=== PATIENT | female | born 1945 | race Caucasian/White ===

== ENCOUNTER 2017-09-17 10:42 | Outpatient (CLI) | payer MEDICARE, OTHER ==
--- NOTE | 2017-09-20 13:45 | Mammography Report ---
DIGITAL SCREENING MAMMOGRAM: 09/17/2017 CLINICAL INDICATION: A 72-year-old with family history of breast cancer, history of benign biopsies, for screening. COMPARISON: 12/2014, 06/2012. TECHNIQUE: Routine CC and MLO projections were obtained of the breasts. FINDINGS: Parenchymal tissue within the breasts is predominantly fatty replaced. There are no domina nt masses, suspicious microcalcifications, or secondary signs of malignancy. In comparison to the pre vious studies, there are no significant changes. IMPRESSION: NO MAMMOGRAPHIC EVIDENCE OF MALIGNANCY. NO SIGNIFICANT INTERVAL CHANGES. RECOMMENDATION: Screening mammography is recommended annually. BIRADS category 1 - negative. STANDARD QUALIFYING STATEMENTS 1. This examination was reviewed with the aid of Computed-Aided Detection (CAD). 2. A negative or benign imaging report should not delay biopsy if clinically suspicious findings are present. Consider surgical consultation if warranted. More than 5% of cancers are not identified by i maging. 3. Dense breasts may obscure an underlying neoplasm. JOB #: [id number] EXT JOB #:[id number]
== END 2017-09-17 10:43 | disposition home or self-care (01) ==
LOC: DI.S 10:42
PROVIDERS: ATTEND Family Medicine
DX: Z12.31 Encounter for screening mammogram for malignant neoplasm of breast (principal); Z80.3 Family history of malignant neoplasm of breast
CPT/HCPCS: 77067

== ENCOUNTER 2020-10-19 12:50 | Outpatient (CLI) | payer MEDICARE, OTHER ==
--- NOTE | 2020-10-19 20:11 | Ultrasound Report ---
PROCEDURE: Chest INDICATIONS: MASS OF ABD WALL, CHEST/TRUNK TECHNIQUE: Real-time scanning was performed, of the left abdominal wall. COMPARISON: None. FINDINGS: At the site of palpable abnormality in the left lateral abdominal wall are 2 subcutaneous adjacent ma sses. 1) Circumscribed isoechoic mass measuring 5.9 x 4.9 x 1.8 cm with a small calcification. There is mil d internal vascularity. 2) Circumscribed slightly hypoechoic mass measuring 2.9 x 2.1 x 0.7 cm. Internal vascularity at the p eriphery is seen. IMPRESSION: At the palpable abnormality at the left lateral abdominal wall are 2 subcutaneous masses measuring 5. 9 and 2.9 cm. One of the masses has a calcification within it. This has a somewhat atypical appearance for the more common subcutaneous lipoma which are generally s oft and not firm and without calcification. Benign and malignant masses are in the differential diagn osis. MRI with IV contrast and fat saturated sequences could be helpful for further characterization. Ultra sound-guided biopsy could be performed for tissue diagnosis. Reviewed by: Ronnie Perla MD on 10/19/2020 7:09 PM [facility] Approved by: Ronnie Perla MD on 10/19/2020 7:09 PM [facility] Station ID: [id number]
== END 2020-10-19 12:51 | disposition home or self-care (01) ==
LOC: DI 12:50
PROVIDERS: ATTEND Family Medicine
DX: R22.2 Localized swelling, mass and lump, trunk (principal)

== ENCOUNTER 2020-11-08 07:00 | Outpatient (CLI) | payer MEDICARE, OTHER | END 2020-11-08 23:59 | LOC: COV 07:00 | PROVIDERS: ATTEND Surgery | DX: Z01.812 Encounter for preprocedural laboratory examination (principal); R19.00 Intra-abdominal and pelvic swelling, mass and lump, unspecified site; Z20.822 Contact with and (suspected) exposure to COVID-19 ==

== ENCOUNTER 2020-11-14 10:03 | Day surgery (SDC) | payer MEDICARE, OTHER ==
[~2020-11-14 10:03] MED LIST: BUPIVACAINE 0.5% PF 30 ML VIAL ONE; ceFAZolin 2 GM/50 ML 2 GM/50 ML BAG IV ONE
[2020-11-14] MEDS ORDERED: LACTATED RINGERS 1,000 ML IV ONE (10:08)
--- NOTE | 2020-11-14 10:50 | ANESTHESIA ---
Pre-Anesthesia VS, & Labs - Diagnosis L abd wall mass x2 - Procedure excision L abd wall mass x2 Vital Signs: Temp Pulse Resp BP Pulse Ox 36 C L 55 L 16 121/68 98 11/14/20 10:11 11/14/20 10:11 11/14/20 10:11 11/14/20 10:11 11/14/20 10:11 Height: 5 ft 7 in Weight (kg): 78 kg Body Mass Index: 26.9 BMI Classification: Overweight - NPO >8 hours - Is Patient ?: No - Lab Results Lab results reviewed: Yes Home Medications and Allergies Home Medications: Ambulatory Orders Budesonide [Entocort EC] 3 - 9 mg PO DAILY 11/07/20 Propranolol HCl [Propranolol HCl ER] 120 mg PO DAILY 11/07/20 Sertraline HCl 100 mg PO DAILY 11/07/20 Budesonide [Entocort EC] 3 - 9 mg PO DAILY 11/07/20 Propranolol HCl [Propranolol HCl ER] 120 mg PO DAILY 11/07/20 Sertraline HCl 100 mg PO DAILY 11/07/20 Allergies/Adverse Reactions: Allergies Allergy/AdvReac Type Severity Reaction Status Date / Time No Known Drug Allergies Allergy Verified 11/06/20 11:26 Anes History & Medical History - Anesthetic History Anesthesia Complications: reports: No previous complications Family history of Anesthesia Complications: Denies Family history of Malignant Hyperthermia: Denies - Medical History Cardiovascular: reports: None Pulmonary: reports: None Gastrointestinal: reports: Other Urinary: reports: None Musculoskeletal: reports: Other Endocrine/Autoimmune: reports: None Skin: reports: None - Surgical History General: Colonoscopy Gynecologic: Hysterectomy, Oophrectomy, Other Exam General: Alert, Oriented x3, Cooperative Dental: WNL Mouth Opening: Greater than 4 Fingerbreadths Neck Mobility: Normal Mallampati classification: I Thyromental Distance: greater than 6 cm Respiratory: Lungs clear, Normal breath sounds, No respiratory distress Cardiovascular: Regular rate Neurological: Normal speech Mental/Cognitive Status: Alert/Oriented X3, Normal for patient Cognitive Status: Within normal limits Plan Anesthesia Type: MAC Consent for Procedure(s) Verified and Reviewed: Yes Code Status: Attempt Resuscitation ASA classification: 2-Mild systemic disease Is this case an emergency?: No
[2020-11-14] MEDS ORDERED: MIDAZOLAM 2 MG/2 ML VIAL ONE (10:55)
[2020-11-14] MEDS ORDERED: fentaNYL 100 MCG/2 ML VIAL ONE (10:55)
[2020-11-14] MEDS ORDERED: PROPOFOL 500 MG/50 ML 500 MG/50 ML VIAL ONE (10:56)
[2020-11-14] MEDS ORDERED: BUPIVACAINE 0.5% PF 30 ML VIAL INFIL ONE ×2 (11:08)
--- NOTE | 2020-11-14 11:51 | OPERATIVE REPORT ---
Operative Report - General Procedure Date: 11/14/20 Planned Procedure: Excision of LEFT abdominal/flank wall mass x2 Pre-Op Diagnosis: LEFT abdominal/flank wall mass x2 Procedure Performed: Excision of LEFT abdominal/flank wall mass x2 Post Op Diagnosis: Same - Procedure Note Primary Surgeon: Brennen Mirza MD Anesthesia Technique: Local (30 mL 1/2% marcaine), MAC Pathology: Both specimens sent for pathologic evaluation IV Fluids (mL): 300 Estimated Blood Loss (mL): 2 Drain/Tube Type: Other (None.) Complications: None - Other Other Information/Narrative: After verbal and written informed consent was obtained detailing the operation, the alternatives the operation including no operation, risks of infection, bleeding requiring transfusion with its risks, nerve injury, and and after I met with the patient confirming the surgery and the site of surgery, the patient was brought to the operative suite and placed supine on the operating table. Great care was taken to avoid pressure points to prevent pressure necrosis or nerve injury. Monitoring devices were applied along with TEDs and pneumatic compression stockings (to prevent DVT). The patient received preoperative antibiotics for surgical prophylaxis. (Anesthesiologist) sedated and anesthetized the patient for the entire procedure. The patient was prepped and draped in the usual sterile manner. With the patient draped my initials were clearly visible. A "time in" then confirmed that the patient was identified with 3 identifiers (name, birthdate, and medical record number), the history and physical was updated and in the chart, the signed consent confirming the procedure was in the chart, the patient was in the correct position, the aforementioned prophylactic measures were in place or given, we had the correct personnel and equipment to complete the procedure and that anesthesia and the surgical team were given an opportunity to express any concerns. With the agreement of everyone in the room we proceeded with the operation. After anesthetizing the skin and subcutaneous tissues with half percent Marcaine, a 5 cm incision was made overlying the mass tracing Awais's lines. Dissection down to the mass was accomplished using a combination of Metzenbaum scissors as well as Bovie electrocautery. Hemostasis obtained using Bovie electrocautery. The "capsule" that the mass had created was entered and finger dissection freed the majority of the mass. Posteriorly and laterally the mass was less distinct as well and was dissecting into the subcutaneous tissues causing small little capsular inclusions. Each 1 of these had to be dissected separately. The mass itself was expressed from the incision and the adhesed tissue and vascular pedicle were transected using Bovie electrocautery. Please note that numerous times during this procedure I had to inject the patient with local anesthetic as I dissected deeper. Posterior laterally there was a smaller lesion that was dissected free in pieces due to the way it had grown into small "nooks and crannys." The subcutaneous tissues were approximated using 3-0 Vicryl in an interrupted fashion. The skin incision was approximated with 4-0 Monocryl in a subcuticular fashion. The remaining local anesthesia to a total of 30 mL of half percent Marcaine was then injected into the space vacated by the mass. The skin was cleaned of its prep and Dermabond was applied. At this point a timeout was performed that confirmed that all counts were correct x2, the procedure that was performed, the blood loss, the IV fluids administered, the patient's condition, and any concerns of the operating team had. Having tolerated the procedure well, the patient was taken recovery room in good and stable condition. The plan is for outpatient discharge when the patient is adequately recovered. This document was created in part using voice recognition technology. Because of the inherent limitations of the system, occasional same sounding word substitutions and grammatical errors do occur and persist despite proofreading. Please read this document for content.
[2020-11-14] MEDS ORDERED: LACTATED RINGERS 500 ML IV ONE (12:00)
[2020-11-14] MEDS ORDERED: HYDROcod/ACETAM 5/325 MG TABLET PO PRN (12:12)
[2020-11-14 12:50] VITALS: BP 112/55
== END 2020-11-14 10:04 | disposition home or self-care (01) ==
LOC: SDS 10:03
PROVIDERS: ATTEND Surgery
PROC: 0JB80ZZ Excision of Abdomen Subcutaneous Tissue and Fascia, Open Approach (ICD-10-PCS; principal; 2020-11-14 11:30)
DX: D17.1 Benign lipomatous neoplasm of skin and subcutaneous tissue of trunk (principal); E66.3 Overweight; Z68.26 Body mass index [BMI] 26.0-26.9, adult; Z79.899 Other long term (current) drug therapy; Z86.19 Personal history of other infectious and parasitic diseases; Z87.891 Personal history of nicotine dependence
CPT/HCPCS: 22903; J0690; J7120

== ENCOUNTER 2020-12-24 11:22 | Outpatient (CLI) | payer MEDICARE, OTHER ==
--- NOTE | 2020-12-27 12:32 | Mammography Report ---
BILATERAL DIGITAL SCREENING MAMMOGRAM 3D/2D: 12/24/2020 CLINICAL: Routine screening. Comparison is made to exams dated: 09/17/2017 mammogram - [facility], 01/03/2015 [facility], and 06/02/2012 mammogram - [facility]. The tissue of both breasts is predominant ly fatty. No significant masses, calcifications, or other findings are seen in either breast. There has been no significant interval change. IMPRESSION: NEGATIVE There is no mammographic evidence of malignancy. A 1 year screening mammogram is recommended. This exam was interpreted at Station ID: [id number]. NOTE: For mammograms, a report in lay terms will be sent to the patient. Approximately 15% of breast malignancies will not be visualized mammographically. In the management of a palpable breast mass, a negative mammogram must not discourage biopsy of a clinically suspicious lesion. Electronically Signed By: Paulina sales/penrad:12/24/2020 12:18:29 ACR BI-RADS Category 1: Negative 3341F PARENCHYMAL PATTERN: (F) - The breast(s) demonstrate(s) diffuse fatty replacement. BI-RADS CATEGORY: (1) - 1 RECOMMENDATION: (ANNUAL) - Recommend routine annual screening mammography. [id number] 1 year screening LATERALITY: (B)
== END 2020-12-24 11:23 | disposition home or self-care (01) ==
LOC: DI.S 11:22
DX: Z12.31 Encounter for screening mammogram for malignant neoplasm of breast (principal)

== ENCOUNTER 2021-10-13 11:16 | Outpatient (CLI) | payer MEDICARE, OTHER ==
--- NOTE | 2021-10-13 15:35 | XRAY Report ---
PROCEDURE: Knee 3 View BILAT INDICATIONS: BILAT KNEE PAIN TECHNIQUE: 3 views of the bilateral knee(s) were acquired. COMPARISON: None. FINDINGS: Tricompartmental joint space narrowing with marginal osteophytosis. Mild subchondral sclerosis and garcia bchondral cystic change. Flattening of the trochlear groove. Mild lateral subluxation of the patellas bilaterally. No knee joint effusion. No significant soft tissue abnormality. IMPRESSION: Moderate joint compartment with osteophytes or arthritis bilaterally. Reviewed by: Thong Chang MD on 10/13/2021 3:34 PM PST Approved by: Thong Chang MD on 10/13/2021 3:34 PM PST Station ID: [id number]
== END 2021-10-13 11:17 | disposition home or self-care (01) ==
LOC: DI.S 11:16
PROVIDERS: ATTEND Family Medicine
DX: M25.561 Pain in right knee (principal)

== ENCOUNTER 2024-07-07 08:00 | Outpatient (CLI) | payer MEDICARE, OTHER | END 2024-07-07 23:59 | disposition home or self-care (01) | LOC: LAB.R 08:00 | PROVIDERS: ATTEND Internal Medicine Gastroenterology | DX: R19.7 Diarrhea, unspecified (principal) | CPT/HCPCS: 83993; 87493 ==